=== PATIENT | male | born 1990 | race Hispanic/Latino ===

== ENCOUNTER 2020-01-25 14:27 | Emergency (ER) | payer SELFPAY ==
[~2020-01-25] VITALS: Ht 175.3 cm; Wt 102.1 kg
[2020-01-25] MEDS ORDERED: LIDOCAINE HCL 1% LOCAL INJ 20 ML VIAL INJ STA (14:40)
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
[2020-01-25] MEDS ORDERED: TETANUS/DIPHTHERIA TOX ADULT 0.5 ML SYR IM ONE (15:00)
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
[2020-01-25] MEDS ORDERED: TETANUS/DIPHTHERIA TOX ADULT 0.5 ML SYR ONE (15:08)
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
== END 2020-01-25 15:43 | disposition home or self-care (01) ==
LOC: FSED 15:29
DX: S06.0X0A Concussion without loss of consciousness, initial encounter (principal); S01.312A Laceration without foreign body of left ear, initial encounter; Y04.2XXA Assault by strike against or bumped into by another person, initial encounter; F17.210 Nicotine dependence, cigarettes, uncomplicated
CPT/HCPCS: 70450; 90714; 99283

== ENCOUNTER 2020-02-01 15:07 | Emergency (ER) | payer SELFPAY ==
[~2020-02-01] VITALS: Ht 175.3 cm; Wt 102.1 kg
--- NOTE | 2020-02-01 15:28 | Emergency Department Note ---
History of Present Illnes History of Present Illness Chief Complaint: General Medicine Complaints History of Present Illness This is a 29 year old male Chief Complaint Comment left ear needs stitches out. had repair ten days ago. . Historian: Patient, Family Member Arrival Mode: Car Onset (how long ago): day(s) (10 ) Location: left ear Quality: painful Radiation: Denies non-radiation, Denies back, Denies neck, Denies extremity, Denies abdomen, Denies periumbilical, Denies flank, Denies proximal, Denies distal, Denies other Severity: mild Onset quality: gradual Duration (how long): day(s) (1) Timing of current episode: constant Progression: waxing and waning Chronicity: new Context: Denies recent illness, Denies recent surgery, Denies recent immobilization, Denies recent travel, Denies trauma/injury, Denies new medications, Denies hx of DVT/PE, Denies non-compliance w/ medications, Denies other Relieving factors: none Exacerbating factors: none Associated symptoms: Reports denies other symptoms Treatments prior to arrival: none Past Medical/Family History Physician Review I have reviewed the patient's past medical and family history. Any updates have been documented here. Past Medical History Recent Fever: No Clinical Suspicion of Infectio: No New/Unexplained Change in Ment: No Past Medical History: None Past Surgical History: None Social History Smoking Cessation: Never Smoker Alcohol Use: Occasional Other Any Pre-Existing Lines (PICC,: Yes Review of Systems Review of Systems Constitutional: Reports no symptoms EENTM: Reports no symptoms Cardiovascular: Reports no symptoms Respiratory: Reports no symptoms Gastrointestinal: Reports no symptoms Genitourinary: Reports no symptoms Musculoskeletal: Reports no symptoms Integumentary: Reports as per HPI Neurological: Reports no symptoms Psychological: Reports no symptoms Endocrine: Reports no symptoms Hematological/Lymphatic: Reports no symptoms Physical Exam Related Data Allergies: Coded Allergies: No Known Allergies (Unverified , 01/25/20) Triage Vital Signs Vital Signs Date Time Temp Pulse Resp B/P (MAP) Pulse Ox O2 Delivery O2 Flow Rate FiO2 02/01/20 15:14 98.2 77 16 177/78 99 Room Air Vital signs reviewed: Yes Physical Exam CONSTITUTIONAL Constitutional: Present well-developed, Present well-nourished HENT HENT: Present normocephalic HENT L/R: Present right ext ear normal, Present other (wound); Absent left TM normal, Absent right TM normal, Absent left canal normal, Absent right canal normal, Absent left impacted cerumen, Absent right impacted cerumen, Absent left bulging TM, Absent right bulging TM EYES Eyes: Reports PERRL, Reports conjunctivae normal NECK Neck: Present ROM normal PULMONARY Pulmonary: Present effort normal, Present breath sounds normal CARDIOVASCULAR Cardiovascular: Present regular rhythm, Present heart sounds normal, Present capillary refill normal, Present normal rate GASTROINTESTINAL Abdominal: Present soft, Present nontender, Present bowel sounds normal GENITOURINARY Genitourinary: Present exam deferred SKIN Skin: Present warm, Present dry MUSCULOSKELETAL Musculoskeletal: Present ROM normal NEUROLOGICAL Neurological: Present alert, Present oriented x 3, Present no gross motor or sensory deficits PSYCHOLOGICAL Psychological: Present mood/affect normal, Present judgement normal Assessment & Plan Medical Decision Making MDM cellulitis Reassessment Reassessment better Assessment & Plan Final Impression: (1) Cellulitis (2) Encounter for removal of sutures Depart Disposition: HOME, SELF-CARE Last Vital Signs Date Time Temp Pulse Resp B/P (MAP) Pulse Ox O2 Delivery O2 Flow Rate FiO2 02/01/20 15:14 98.2 77 16 177/78 99 Room Air MELVI TAVARES MD Feb 01, 2020 15:28
--- OUTSIDE RECORDS SUMMARY | 2020-02-02 10:25 | XMS REPORT | Continuity of Care Document ---
Author Author [facility] t Organization [facility] Address [address] [place] [address] Phone Unavailable Care Team Providers Care [employer] Executive Name Role Phone NO, PCP PCP Unavailable CAMILA SOLIS Unavailable Payers Payer Name Policy Type Policy Number Effective Date Expiration Date S ource Problems Condition Name Condition Details Condition Category Status Onset Date Resolution Date Last Treatment Date Treating Clinician Comments Source Laceration of left ear Problem [facility] Concussion Problem [facility] Cellulitis Problem [facility] Encounter for removal of sutures Problem Active [facility] Allergies, Adverse Reactions, Alerts Allergy Name Allergy Type Status Severity Reaction(s) Onset Date Inacti ve Date Treating Clinician Comments Source No Known Allergies DA Active U 2019-11-29 00:00:[address] [facility] Social History Social Habit Start Date Stop Date Quantity Comments Source Sex Ass[birth year] At 1990 00:00:00 1990 00:00:00 Male [facility] Medications This patient has no known medications. Vital Signs Vital Name Observation Time Observation Value Comments Source Weight 2020-02-01 15:14:00 225 [lb_av] [facility] BMI (Body Mass Index) 2020-02-01 15:14:00 33.2 kg/m2 [facility] Weight 2020-01-25 14:28:00 225 [lb_av] [facility] BMI (Body Mass Index) 2020-01-25 14:28:00 33.2 kg/m2 [facility] Procedures Procedure Date / Time Performed Performing Clinician Sourc e RPR F/E/E/N/L/M 2.5 CM/< 2020-01-25 00:00:00 [facility] IMMUNIZATION ADMIN 2020-01-25 00:00:00 [facility] Plan of Care Planned Activity Planned Date Details Comments Source Instructions [facility] Instructions Wound Care (General) [facility] Encounters Start Date/Time End Date/Time Encounter Type Admission Type [facility] Care Department Encounter ID Source 2020-02-01 15:30:00 2020-02-01 15:47:00 Departed Emergency Room [facility] [id number] [facility] dical [place] 2020-01-25 15:29:00 2020-01-25 15:43:00 Departed Emergency Room CAMILA SOLIS [facility] [id number] [facility] 2016-10-30 00:00:00 2016-10-30 00:00:00 [id number] Results Test Description Test Time Test Comments Results Result Comments Source CT BRAIN WO-[facility] 2020-01-25 14:59:00 [facility] [address] [address] Patient Name: JAMEL SANTAMARIA MR #: [id number] : 1990 Age/Sex: 29/M Req #: [id number] Adm Physician: Ordered by: CAMILA SOLIS DO Report #: [id number] Location: [facility] Room/Bed: Procedure: [id number] [facility] Ex[facility] Date: 01/25/20 Exam Time: 1456 REPORT [...] BRICE on 01/25/20 1502 COPY TO: CAMILA SOLIS DO Novel Coronavirus 2019 nCoV 2019-12-01 14:05:00 Test Item Novel Coronavirus 2019 nCoV (test code = COVID19) Positive Nega tive A Does patient have the clinical criteria consistent with COVID-19? YIs the patien t going to be discharged home? Y STREPTOCOCCUS PCR [id number] 08:25:00* Test Item Value Reference Range Interpretation Comments STREPTOCOCCUS DYSGALACTIAE (test code = STREPGC) NEGATIVE FOR G/C N EGATIVE STREPA MOLECULAR (test code = STREPAMOL) NEGATIVE FOR GRP A NEGATIV E
== END 2020-02-01 15:47 | disposition home or self-care (01) ==
LOC: FSED 15:30
DX: Z48.02 Encounter for removal of sutures (principal)
CPT/HCPCS: 99283